=== PATIENT | female | born 1950 | race African-American/Black ===

== ENCOUNTER 2022-04-19 15:48 | Inpatient (IN) | payer OTHER ==
[~2022-04-19] VITALS: Ht 172.7 cm; Wt 108.9 kg
[2022-04-19] MEDS ORDERED: SODIUM CHLORIDE 0.9% 1000ML BAG (SEPSIS BOLUS) IV ONE (17:45)
[2022-04-19] MEDS ORDERED: NOREPINEPHRINE 8MG/250ML PMX 250 ML IV ONE (19:15)
[2022-04-19] MEDS ORDERED: NOREPINEPHRINE 8 MG in DEXTROSE 5% WATER 250 ML IV ONE (19:30)
[2022-04-19 19:44] LABS: CLARITY URINE TURBID (CLEAR); COLOR URINE DARK YELLOW (YELLOW); KETONES URINE TRACE (NEGATIVE); LEUKOCYTE ESTERASE URINE 3+ (NEGATIVE); NITRITE URINE NEGATIVE (NEGATIVE); OCCULT BLOOD URINE 3+ (NEGATIVE); PH URINE 6.5 (4.5-8.0); PROTEIN URINE 2+ (NEGATIVE); SPECIFIC GRAVITY URINE 1.014 (1.005-1.030)
[2022-04-19 19:53] LABS: CHLORIDE 108 mEq/L (98-107)
[2022-04-19] MEDS ORDERED: DEXTROSE 50% WATER 50ML SYRINGE IV ONE (20:30)
[2022-04-19] MEDS ORDERED: POTASSIUM CHLORIDE INJ 40 MEQ in DEXT 5% WATER 250 ML IV ONE ×4 (20:30)
[2022-04-19] MEDS ORDERED: CEFTRIAXONE 1 G PREMIX 50 ML IV ONE (20:45)
[2022-04-19] MEDS ORDERED: VANCOMYCIN 1G PREMIX 200 ML IV SCH (20:45)
[2022-04-19 21:28] LABS: BASOPHILS % 0.4 % (0.0-2.0); EOSINOPHILS % 0.5 % (0.0-5.0); LYMPHOCYTES % 15.5 % (20.0-50.0); MEAN CORPUSCULAR HEMOGLOBIN 32.3 pg (28.0-32.0); MEAN CORPUSCULAR VOLUME 110.5 fL (81.0-99.0); MEAN PLATELET VOLUME 10.2 fl (7.4-10.4); MONOCYTES % 1.4 % (2.0-8.0); NEUTROPHILS % 82.2 % (40.0-76.0); RED CELL DISTRIBUTION WIDTH 23.8 % (11.6-14.6)
[2022-04-19 21:31] LABS: HEMATOCRIT. 18.8 % (36.0-48.0); HEMOGLOBIN. 5.5 g/dL (12.0-16.0); PLATELET 42 x1000/uL (130-400)
[2022-04-19 22:50] LABS: PLATELET ESTIMATE MARKEDLY DECREASED
[2022-04-20] VITALS (38 sets, daily range): BP systolic 44–250; BP diastolic 24–212
[2022-04-20] MEDS ORDERED: MAGNESIUM/ALUMINUM HYDROXIDE/SIMETHICONE 30ML UDC PO PRN (05:30)
[2022-04-20] MEDS ORDERED: CLONIDINE 0.1MG TABLET PO PRN (05:30)
[2022-04-20] MEDS ORDERED: DOCUSATE SODIUM 100MG CAPSULE PO PRN (05:30)
[2022-04-20] MEDS ORDERED: ONDANSETRON HCL 4MG/2ML INJ IV PRN (05:30)
[2022-04-20] MEDS ORDERED: ACETAMINOPHEN 650MG/20.3ML UDC GT PRN (05:30)
[2022-04-20] MEDS ORDERED: IPRATROPIUM/ALBUTEROL 0.5-3(2.5)MG/3ML NEB HHN PRN (05:30)
[2022-04-20] MEDS ORDERED: GUAIFENESIN 200MG/10ML SUGAR FREE UDC PO PRN (05:30)
[2022-04-20] MEDS ORDERED: ACETAMINOPHEN 650MG SUPP PR PRN (05:30)
[2022-04-20] MEDS ORDERED: PIPERACILLIN/TAZOBACTAM 3.375 G in DEXTROSE 5% WATER 50 ML IV SCH (06:00)
[2022-04-20] MEDS ORDERED: POTASSIUM CHLORIDE 20MEQ TABLET SR PO SCH (07:00)
[2022-04-20 07:12] LABS: CREATINE KINASE MB FRACTION 18.2 ng/mL (0.5-3.6); PHOSPHORUS 2.8 mg/dL (2.5-4.9)
[2022-04-20 07:33] LABS: VITAMIN B12 SERUM >2000 pg/mL pg/mL (211-911)
[2022-04-20] MEDS: VANCOMYCIN 1G PREMIX 200 ML IV SCH (08:00)
[2022-04-20] MEDS: DEXT 5%/0.45% NACL 1000ML 1,000 ML IV SCH ×2 (08:00→23:21)
[2022-04-20 08:33] LABS: BG BASE EXCESS -0.3 mmol/L (-2.0-2.0); BG CARBOXYHEMOGLOBIN 0.7 % (0.5-1.5); BG DEOXYHEMOGLOBIN 1.6 % (0.0-5.0); BG HCO3 ACT 21.3 mmol/L (22.0-26.0); BG METHEMOGLOBIN 0.5 % (0.0-1.5); BG OXYGEN SATURATION 98.4 % (92.0-98.5); BG OXYHEMOGLOBIN 97.2 % (94.0-97.0); BG PCO2 24.8 mmHg (35.0-45.0); BG PH 7.552 (7.350-7.450); BG TOTAL HEMOGLOBIN 8.9 g/dL (12.0-18.0)
[2022-04-20 08:52] LABS: D-DIMER 2.53 mg/L FEU (<0.50); INR 1.8; PROTHROMBIN TIME 18.7 sec (9.6-11.0)
[2022-04-20] MEDS ORDERED: ENOXAPARIN 40MG/0.4ML SYR SUBCUT SCH (09:00)
[2022-04-20] MEDS: PANTOPRAZOLE SODIUM 40 MG/VIAL IV SCH (09:00)
[2022-04-20] MEDS ORDERED: NOREPINEPHRINE 32 MG in DEXT 5% WATER 218 ML IV PRN (12:30)
[2022-04-20] MEDS ORDERED: CEFTRIAXONE 1 G PREMIX 50 ML IV SCH (14:00)
[2022-04-20] MEDS: KCL 20MEQ/100ML PREMIX 100 ML IV SCH ×2 (14:52→16:28)
[2022-04-20] MEDS ORDERED: VANCOMYCIN 1.25GM PMX (XELLIA) 250 ML IV SCH (15:00)
[2022-04-20] MEDS ORDERED: MAGNESIUM 2 G PREMIX 50 ML IV NR (15:00)
[2022-04-20 15:44] LABS: BG BASE EXCESS -5.6 mmol/L (-2.0-2.0); BG CARBOXYHEMOGLOBIN 0.2 % (0.5-1.5); BG DEOXYHEMOGLOBIN 2.1 % (0.0-5.0); BG FRACTION INSPIRED OXYGEN 40; BG METHEMOGLOBIN 0.4 % (0.0-1.5); BG OXYGEN SATURATION 97.9 % (92.0-98.5); BG OXYHEMOGLOBIN 97.3 % (94.0-97.0); BG PCO2 29.2 mmHg (35.0-45.0); BG PH 7.408 (7.350-7.450); BG PO2 110.7 mmHg (75.0-100.0); BG SAMPLE SITE RIGHT RADIAL; BG TOTAL HEMOGLOBIN 11.1 g/dL (12.0-18.0); BG VENT MODE NASAL CANNULA
[2022-04-20] MEDS: CEFTRIAXONE 1,000 MG in DEXTROSE 5% WATER 50 ML IV SCH ×2 (16:00→17:00)
[2022-04-20] MEDS: PHENYLEPHRINE 100 MG in DEXT 5% WATER 240 ML IV PRN ×2 (16:28→23:21)
[2022-04-20 19:11] LABS: BASOPHILS % 0.6 % (0.0-2.0); EOSINOPHILS % 0.1 % (0.0-5.0); HEMOGLOBIN. 8.8 g/dL (12.0-16.0); MEAN CORPUSCULAR HEMOGLOBIN 29.6 pg (28.0-32.0); MONOCYTES % 1.7 % (2.0-8.0); NEUTROPHILS % 83.6 % (40.0-76.0); RED BLOOD CELL COUNT 2.97 mill/uL (4.2-5.4); RED CELL DISTRIBUTION WIDTH 23.6 % (11.6-14.6)
[2022-04-20 19:19] LABS: CHLORIDE 107 mEq/L (98-107)
[2022-04-20 19:27] LABS: PHOSPHORUS 2.6 mg/dL (2.5-4.9)
[2022-04-20 19:38] LABS: PLATELET 25 x1000/uL (130-400)
[2022-04-20] MEDS ORDERED: KCL 20MEQ/100ML PREMIX 100 ML IV NR ×2 (21:00→21:30)
[2022-04-21] VITALS (89 sets, daily range): BP systolic 37–275; BP diastolic 17–247
[2022-04-21] MEDS: VANCOMYCIN 1G PREMIX 200 ML IV SCH (02:48)
[2022-04-21 05:23] LABS: HEMATOCRIT. 23.9 % (36.0-48.0); HEMOGLOBIN. 7.8 g/dL (12.0-16.0); MEAN CORPUSCULAR HEMOGLOBIN 29.9 pg (28.0-32.0); MEAN CORPUSCULAR VOLUME 91.3 fL (81.0-99.0); MEAN PLATELET VOLUME 8.4 fl (7.4-10.4); RED BLOOD CELL COUNT 2.61 mill/uL (4.2-5.4); RED CELL DISTRIBUTION WIDTH 24.3 % (11.6-14.6)
[2022-04-21 05:27] LABS: CHLORIDE 110 mEq/L (98-107)
[2022-04-21 05:37] LABS: PLATELET 24 x1000/uL (130-400)
[2022-04-21 05:46] LABS: HDL CHOLESTEROL 22 mg/dL (40-59); LDL CHOLESTEROL 67 mg/dL (5-100); PHOSPHORUS 2.6 mg/dL (2.5-4.9); T4 FREE 0.69 ng/dL (0.76-1.46)
[2022-04-21 08:15] LABS: NUCLEATED RED BLOOD CELLS 12 /100 WBC; PLATELET ESTIMATE MARKEDLY DECREASED
[2022-04-21] MEDS: PHENYLEPHRINE 100 MG in DEXT 5% WATER 240 ML IV PRN ×2 (08:20→22:44)
[2022-04-21] MEDS: CEFTRIAXONE 1,000 MG in DEXTROSE 5% WATER 50 ML IV SCH (08:20)
[2022-04-21] MEDS: PANTOPRAZOLE SODIUM 40 MG/VIAL IV SCH ×2 (08:20→17:58)
[2022-04-21] MEDS ORDERED: ALBUMIN HUMAN 25GM/100ML (25%) IV NR (08:30)
[2022-04-21] MEDS: DEXT 5%/0.45% NACL 1000ML 1,000 ML IV SCH ×2 (08:34→20:47)
[2022-04-21 09:08] LABS: BG BASE EXCESS -11.9 mmol/L (-2.0-2.0); BG CARBOXYHEMOGLOBIN 0.1 % (0.5-1.5); BG DEOXYHEMOGLOBIN 3.9 % (0.0-5.0); BG HCO3 ACT 10.4 mmol/L (22.0-26.0); BG METHEMOGLOBIN 0.4 % (0.0-1.5); BG OXYGEN SATURATION 96.1 % (92.0-98.5); BG OXYHEMOGLOBIN 95.6 % (94.0-97.0); BG PCO2 15.5 mmHg (35.0-45.0); BG PH 7.445 (7.350-7.450); BG PO2 86.3 mmHg (75.0-100.0); BG SAMPLE SITE RIGHT RADIAL; BG TOTAL HEMOGLOBIN 8.5 g/dL (12.0-18.0); BG VENT MODE NASAL CANNULA
[2022-04-21] MEDS: NOREPINEPHRINE 32 MG in DEXT 5% WATER 218 ML IV PRN (09:08)
[2022-04-21] MEDS ORDERED: KCL 20MEQ/100ML PREMIX 100 ML IV SCH ×2 (09:15→14:00)
[2022-04-21] MEDS ORDERED: POTASSIUM CHLORIDE INJ 40 MEQ in DEXT 5% WATER 250 ML IV NR (10:30)
[2022-04-21] MEDS: MEROPENEM 1,000 MG in SODIUM CHLORIDE 0.9% 100 ML IV SCH ×2 (10:57→20:45)
[2022-04-21] MEDS ORDERED: DIATR MEGLU/DIATRIZOATE SOLN 30ML PO SCH (11:00)
[2022-04-21] MEDS ORDERED: CALCIUM CHLORIDE 1,000 MG in DEXT 5% WATER 90 ML IV NR (12:00)
[2022-04-21] MEDS ORDERED: BARIUM SULFATE 450ML ORAL SUSP PO SCH (12:00)
[2022-04-21] MEDS: LEVOTHYROXINE SODIUM 100 MCG/ VIAL IV SCH (12:25)
[2022-04-21] MEDS: HYDROCORTISONE SOD SUCCINATE 100 MG/2 ML VIAL IV SCH ×2 (13:24→22:36)
[2022-04-21 14:10] LABS: BG CARBOXYHEMOGLOBIN 0.3 % (0.5-1.5); BG DEOXYHEMOGLOBIN 2.6 % (0.0-5.0); BG FRACTION INSPIRED OXYGEN 40; BG HCO3 ACT 11.8 mmol/L (22.0-26.0); BG METHEMOGLOBIN 0.3 % (0.0-1.5); BG OXYGEN SATURATION 97.4 % (92.0-98.5); BG OXYHEMOGLOBIN 96.8 % (94.0-97.0); BG PCO2 20.9 mmHg (35.0-45.0); BG PO2 115.8 mmHg (75.0-100.0); BG SAMPLE SITE RIGHT RADIAL; BG TOTAL HEMOGLOBIN 8.2 g/dL (12.0-18.0); BG TOTAL RESPIRATORY RATE 27 b/min; BG VENT MODE MASK - BIPAP
[2022-04-21] MEDS: KCL 20MEQ/100ML PREMIX 100 ML IV SCH ×2 (17:59→20:45)
[2022-04-21] MEDS: PHYTONADIONE 10MG/ML AMP SUBCUT SCH (17:59)
[2022-04-22] VITALS (86 sets, daily range): BP systolic 37–234; BP diastolic 17–186
[2022-04-22] MEDS: HYDROCORTISONE SOD SUCCINATE 100 MG/2 ML VIAL IV SCH ×3 (05:08→21:00)
[2022-04-22 08:03] LABS: MEAN CORPUSCULAR HEMOGLOBIN 29.9 pg (28.0-32.0); MEAN CORPUSCULAR VOLUME 90.6 fL (81.0-99.0); MEAN PLATELET VOLUME 9.1 fl (7.4-10.4); RED BLOOD CELL COUNT 3.34 mill/uL (4.2-5.4)
[2022-04-22 08:06] LABS: INR 1.6; PROTHROMBIN TIME 16.1 sec (9.6-11.0)
[2022-04-22 08:09] LABS: HEMATOCRIT. 30.3 % (36.0-48.0)
[2022-04-22 08:10] LABS: RED CELL DISTRIBUTION WIDTH 21.6 % (11.6-14.6)
[2022-04-22 08:20] LABS: PHOSPHORUS 2.5 mg/dL (2.5-4.9)
[2022-04-22] MEDS ORDERED: VANCOMYCIN 1G PREMIX 200 ML IV SCH (09:00)
[2022-04-22 09:23] LABS: BG BASE EXCESS -8.5 mmol/L (-2.0-2.0); BG CARBOXYHEMOGLOBIN 0.3 % (0.5-1.5); BG DEOXYHEMOGLOBIN 2.5 % (0.0-5.0); BG FRACTION INSPIRED OXYGEN 28; BG HCO3 ACT 14.3 mmol/L (22.0-26.0); BG METHEMOGLOBIN 0.4 % (0.0-1.5); BG OXYGEN SATURATION 97.5 % (92.0-98.5); BG OXYHEMOGLOBIN 96.8 % (94.0-97.0); BG PCO2 22.3 mmHg (35.0-45.0); BG PH 7.424 (7.350-7.450); BG SAMPLE SITE RIGHT RADIAL; BG TOTAL HEMOGLOBIN 10.7 g/dL (12.0-18.0); BG TOTAL RESPIRATORY RATE 38 b/min; BG VENT MODE MASK - BIPAP
[2022-04-22 09:45] LABS: NUCLEATED RED BLOOD CELLS 6 /100 WBC
[2022-04-22 09:46] LABS: PLATELET ESTIMATE MARKEDLY DECREASED
[2022-04-22 09:47] LABS: PLATELET 39 x1000/uL (130-400)
[2022-04-22 10:02] LABS: *AMPHETAMINES SCREEN URINE NEGATIVE (NEGATIVE); *BARBITURATES SCREEN URINE NEGATIVE (NEGATIVE); *BENZODIAZEPINES SCREEN URINE NEGATIVE (NEGATIVE); *COCAINE SCREEN URINE NEGATIVE (NEGATIVE); CANNABINOID URINE SCREEN NEGATIVE (NEGATIVE); METHADONE URINE SCREEN NEGATIVE (NEGATIVE); OPIATES URINE SCREEN NEGATIVE (NEGATIVE); PHENCYCLIDINE URINE SCREEN NEGATIVE (NEGATIVE)
[2022-04-22] MEDS: MEROPENEM 1,000 MG in SODIUM CHLORIDE 0.9% 100 ML IV SCH ×2 (10:36→21:00)
[2022-04-22] MEDS: LEVOTHYROXINE SODIUM 100 MCG/ VIAL IV SCH (10:37)
[2022-04-22] MEDS: PHYTONADIONE 10MG/ML AMP SUBCUT SCH (10:40)
[2022-04-22] MEDS: DEXT 5%/0.45% NACL 1000ML 1,000 ML IV SCH ×3 (10:41→23:30)
[2022-04-22] MEDS: PANTOPRAZOLE SODIUM 40 MG/VIAL IV SCH ×2 (10:41→16:26)
[2022-04-22 11:41] LABS: TOTAL IRON BINDING CAPACITY 105 ug/dL (250-450)
[2022-04-22] MEDS ORDERED: FUROSEMIDE 40MG/4ML VIAL IVP NR (13:30)
[2022-04-22] MEDS: NOREPINEPHRINE 32 MG in DEXT 5% WATER 218 ML IV PRN ×2 (13:36→21:01)
[2022-04-22] MEDS: PHENYLEPHRINE 100 MG in DEXT 5% WATER 240 ML IV PRN ×2 (16:34→21:01)
[2022-04-22] MEDS ORDERED: MORPHINE SULFATE 2 MG/ML CPJ (NOT FOR IM USE) IV ONE (17:15)
[2022-04-22 17:24] LABS: VITAMIN B12 SERUM > 2000.0 pg/mL (211-911)
[2022-04-22] MEDS ORDERED: LORAZEPAM 2MG/ML CPJ IV SCH (17:30)
[2022-04-22] MEDS ORDERED: VASOPRESSIN 20 UNIT in SODIUM CHLORIDE 0.9% 99 ML IV PRN (21:15)
[2022-04-23] VITALS (107 sets, daily range): BP systolic 46–158; BP diastolic 15–74
[2022-04-23] MEDS: VASOPRESSIN 20 UNIT in SODIUM CHLORIDE 0.9% 99 ML IV PRN ×3 (00:01→20:39)
[2022-04-23] MEDS: EPINEPHRINE 10 MG in SODIUM CHLORIDE 0.9% 240 ML IV PRN ×17 (01:36→23:06)
[2022-04-23] MEDS ORDERED: FENTANYL 2500MCG/250ML PMX 250 ML IV PRN (01:45)
[2022-04-23 01:57] LABS: HEMATOCRIT. 31.6 % (36.0-48.0); HEMOGLOBIN. 8.9 g/dL (12.0-16.0); MEAN CORPUSCULAR HEMOGLOBIN 30.1 pg (28.0-32.0); MEAN CORPUSCULAR VOLUME 107.3 fL (81.0-99.0); MEAN PLATELET VOLUME 9.2 fl (7.4-10.4); RED BLOOD CELL COUNT 2.95 mill/uL (4.2-5.4); RED CELL DISTRIBUTION WIDTH 24.2 % (11.6-14.6)
[2022-04-23 02:05] LABS: CHLORIDE 111 mEq/L (98-107)
[2022-04-23 02:17] LABS: PLATELET 15 x1000/uL (130-400)
[2022-04-23 02:35] LABS: BG BASE EXCESS -24.5 mmol/L (-2.0-2.0); BG CARBOXYHEMOGLOBIN 0.2 % (0.5-1.5); BG FRACTION INSPIRED OXYGEN 28; BG METHEMOGLOBIN 0.6 % (0.0-1.5); BG OXYGEN SATURATION 91.9 % (92.0-98.5); BG OXYHEMOGLOBIN 91.2 % (94.0-97.0); BG PH 7.047 (7.350-7.450); BG PO2 86.5 mmHg (75.0-100.0); BG SAMPLE SITE RIGHT FEMORAL; BG TOTAL HEMOGLOBIN 8.2 g/dL (12.0-18.0); BG VENT MODE MASK - BIPAP
[2022-04-23] MEDS ORDERED: SODIUM BICARBONATE 8.4% 1 MEQ/ML 50ML SYR IV NR ×2 (02:45→06:00)
[2022-04-23] MEDS ORDERED: DEXTROSE 5% WATER 1,000 ML IV SCH (02:45)
[2022-04-23] MEDS: PHENYLEPHRINE 100 MG in DEXT 5% WATER 240 ML IV PRN ×4 (02:57→18:54)
[2022-04-23] MEDS: NOREPINEPHRINE 32 MG in DEXT 5% WATER 218 ML IV PRN ×4 (02:57→18:55)
[2022-04-23] MEDS: SODIUM BICARBONATE 150 MEQ in DEXTROSE 5% WATER 1,000 ML IV SCH ×2 (03:12→21:11)
[2022-04-23 03:16] LABS: NUCLEATED RED BLOOD CELLS 16 /100 WBC; PLATELET ESTIMATE MARKEDLY DECREASED
[2022-04-23] MEDS: HYDROCORTISONE SOD SUCCINATE 100 MG/2 ML VIAL IV SCH ×3 (06:00→21:10)
[2022-04-23] MEDS: MEROPENEM 1,000 MG in SODIUM CHLORIDE 0.9% 100 ML IV SCH ×2 (08:31→21:10)
[2022-04-23] MEDS: PANTOPRAZOLE SODIUM 40 MG/VIAL IV SCH ×2 (08:34→16:56)
[2022-04-23] MEDS: PHYTONADIONE 10MG/ML AMP SUBCUT SCH (08:35)
[2022-04-23] MEDS: LEVOTHYROXINE SODIUM 100 MCG/ VIAL IV SCH (08:37)
[2022-04-23] MEDS ORDERED: VANCOMYCIN 750MG PREMIX 150 ML IV SCH (09:00)
[2022-04-23] MEDS ORDERED: PHYTONADIONE 10MG/ML AMP SUBCUT SCH (09:00)
[2022-04-23 09:46] LABS: BG BASE EXCESS -19.2 mmol/L (-2.0-2.0); BG CARBOXYHEMOGLOBIN 0.4 % (0.5-1.5); BG DEOXYHEMOGLOBIN 0.7 % (0.0-5.0); BG FRACTION INSPIRED OXYGEN 100; BG HCO3 ACT 8.2 mmol/L (22.0-26.0); BG METHEMOGLOBIN 0.3 % (0.0-1.5); BG OXYGEN SATURATION 99.3 % (92.0-98.5); BG OXYHEMOGLOBIN 98.6 % (94.0-97.0); BG PCO2 24.9 mmHg (35.0-45.0); BG PH 7.133 (7.350-7.450); BG PO2 278.4 mmHg (75.0-100.0); BG SAMPLE SITE LEFT RADIAL; BG TOTAL HEMOGLOBIN 6.2 g/dL (12.0-18.0); BG TOTAL RESPIRATORY RATE 30 b/min; BG VENT MODE VENT - AC
[2022-04-23 14:51] LABS: MEAN CORPUSCULAR HEMOGLOBIN 30.1 pg (28.0-32.0); MEAN CORPUSCULAR VOLUME 100.8 fL (81.0-99.0); MEAN PLATELET VOLUME 8.8 fl (7.4-10.4); RED BLOOD CELL COUNT 1.55 mill/uL (4.2-5.4); RED CELL DISTRIBUTION WIDTH 23.3 % (11.6-14.6)
[2022-04-23 14:54] LABS: CHLORIDE 109 mEq/L (98-107)
[2022-04-23 14:57] LABS: HEMOGLOBIN. 4.7 g/dL (12.0-16.0)
[2022-04-23 14:58] LABS: HEMATOCRIT. 15.6 % (36.0-48.0)
[2022-04-23 15:20] LABS: NUCLEATED RED BLOOD CELLS 11 /100 WBC
[2022-04-23 15:21] LABS: PLATELET ESTIMATE MARKEDLY DECREASED
[2022-04-23 15:32] LABS: PLATELET 16 x1000/uL (130-400)
[2022-04-23 15:57] LABS: PROTHROMBIN TIME 30.1 sec (9.6-11.0)
[2022-04-23 15:58] LABS: INR 3.1
[2022-04-24] MEDS: NOREPINEPHRINE 32 MG in DEXT 5% WATER 218 ML IV PRN ×2
[2022-04-24] MEDS: PHENYLEPHRINE 100 MG in DEXT 5% WATER 240 ML IV PRN ×2
[2022-04-24] MEDS: EPINEPHRINE 10 MG in SODIUM CHLORIDE 0.9% 240 ML IV PRN (00:24)
[2022-04-24] MEDS: DEXTROSE 50% WATER 50ML SYRINGE IV NR ×2 (02:17→02:45)
[2022-04-24] MEDS ORDERED: PHYTONADIONE 10MG/ML AMP SUBCUT SCH (09:00)
[2022-04-27 16:00] LABS: FERRITIN 5511 ng/mL (10-291)
== END 2022-04-24 03:21 | DRG 871 ==
LOC: ER 15:48 → EDBD 15:48 → EDBEDREQ 17:49 → MICUSO 21:59 → EDBEDREQSVC 22:01 → EDBEDREQ 22:01 → MICUSO 04-20 14:04
PROVIDERS: ADMIT Hospitalist; ATTEND Hospitalist
PROC: 02HV33Z Insertion of Infusion Device into Superior Vena Cava, Percutaneous Approach (ICD-10-PCS; 2022-04-19)
PROC: B548ZZA Ultrasonography of Superior Vena Cava, Guidance (ICD-10-PCS; 2022-04-19)
PROC: 3E0A3GC Introduction of Other Therapeutic Substance into Bone Marrow, Percutaneous Approach (ICD-10-PCS; 2022-04-19)
PROC: 30233K1 Transfusion of Nonautologous Frozen Plasma into Peripheral Vein, Percutaneous Approach (ICD-10-PCS; 2022-04-21)
PROC: 30233R1 Transfusion of Nonautologous Platelets into Peripheral Vein, Percutaneous Approach (ICD-10-PCS; 2022-04-21)
PROC: 5A09457 Assistance with Respiratory Ventilation, 24-96 Consecutive Hours, Continuous Positive Airway Pressure (ICD-10-PCS; 2022-04-21)
PROC: 30233N1 Transfusion of Nonautologous Red Blood Cells into Peripheral Vein, Percutaneous Approach (ICD-10-PCS; 2022-04-22)
PROC: 0BH17EZ Insertion of Endotracheal Airway into Trachea, Via Natural or Artificial Opening (ICD-10-PCS; principal; 2022-04-23)
PROC: 5A1935Z Respiratory Ventilation, Less than 24 Consecutive Hours (ICD-10-PCS; 2022-04-23)
PROC: 5A12012 Performance of Cardiac Output, Single, Manual (ICD-10-PCS; 2022-04-24)
DX: A41.51 Sepsis due to Escherichia coli [E. coli] (principal); E43 Unspecified severe protein-calorie malnutrition; L89.153 Pressure ulcer of sacral region, stage 3; G93.41 Metabolic encephalopathy; R65.21 Severe sepsis with septic shock; J96.00 Acute respiratory failure, unspecified whether with hypoxia or hypercapnia; N17.0 Acute kidney failure with tubular necrosis; I21.4 Non-ST elevation (NSTEMI) myocardial infarction; D68.9 Coagulation defect, unspecified; N39.0 Urinary tract infection, site not specified; E87.4 Mixed disorder of acid-base balance; E87.0 Hyperosmolality and hypernatremia; K56.609 Unspecified intestinal obstruction, unspecified as to partial versus complete obstruction; M62.82 Rhabdomyolysis; D61.818 Other pancytopenia; K92.1 Melena; J90 Pleural effusion, not elsewhere classified; E83.42 Hypomagnesemia; E87.6 Hypokalemia; E16.2 Hypoglycemia, unspecified; E83.51 Hypocalcemia; E66.9 Obesity, unspecified; D63.8 Anemia in other chronic diseases classified elsewhere; D53.9 Nutritional anemia, unspecified; R74.01 Elevation of levels of liver transaminase levels; E80.6 Other disorders of bilirubin metabolism; L89.210 Pressure ulcer of right hip, unstageable; K57.30 Diverticulosis of large intestine without perforation or abscess without bleeding; Z20.822 Contact with and (suspected) exposure to COVID-19; E03.9 Hypothyroidism, unspecified; M06.9 Rheumatoid arthritis, unspecified; K52.9 Noninfective gastroenteritis and colitis, unspecified; M47.819 Spondylosis without myelopathy or radiculopathy, site unspecified; I12.9 Hypertensive chronic kidney disease with stage 1 through stage 4 chronic kidney disease, or unspecified chronic kidney disease; N18.2 Chronic kidney disease, stage 2 (mild); Z74.01 Bed confinement status; Z79.631 Long term (current) use of antimetabolite agent; Z88.5 Allergy status to narcotic agent; Z90.710 Acquired absence of both cervix and uterus; Z86.74 Personal history of sudden cardiac arrest; Z68.36 Body mass index [BMI] 36.0-36.9, adult
CPT/HCPCS: 31500; 36415; 36600; 71045; 74176; 76705; 76770; 80048; 80053; 80061; 80076; 80202; 80305; 81003; 82270; 82375; 82550; 82553; 82570; 82607; 82652; 82728; 82746; 82805; 82962; 83036; 83540; 83550; 83605; 83735; 83880; 83935; 84100; 84134; 84145; 84300; 84439; 84443; 84481; 84484; 85018; 85025; 85044; 85362; 85379; 85384; 86850; 86900; 86920; 86927; 87077; 87186; 87426; 87804; 93005; 93306; 93970; 94002; 94003; 94640; 94660; 99291; C9113; J0696; J1650; J1720; J1940; J2060; J2185; J2370; J2405; J2543; J3370; J3430; J3475; J3480; J3490; J7030; J7050; J7060; J7070; P9016; P9017; P9034; P9047; Q9963; A4315